=== PATIENT | male | born 1980 | race Hispanic/Latino ===

== ENCOUNTER 2018-06-10 07:23 | Emergency (ER) | payer SELFPAY ==
--- NOTE | 2018-06-10 09:06 | EDPHYS ---
Physician Documentation [facility] Name: Maria Elena Palmer Age: 37 yrs Sex: Male : 1980 Arrival Date: 06/10/2018 Time: 07:27 Bed 14 Private MD: ED Physician Graham Steel HPI: 06/10 07:44 This 37 yrs old Male presents to ER via Ambulatory with complaints of Sore kb Throat, Painful Cough. 07:44 The patient or guardian reports cough, that is intermittent, described as moderate, kb with productive sputum, flu symptoms, low-grade fever, myalgias. Onset: The symptoms/episode began/occurred 7 day(s) ago. Severity of symptoms: At their worst the symptoms were moderate, in the emergency department the symptoms are unchanged. Modifying factors: The symptoms are alleviated by nothing, the symptoms are aggravated by nothing. Associated signs and symptoms: Pertinent positives: chest pain, with cough, fever, rhinorrhea, sore throat, Pertinent negatives: diarrhea, ear ache, nausea, vomiting. The patient has not experienced similar symptoms in the past. The patient has been recently seen by a physician: the patient's primary care provider, 2 day(s) ago, with similar presenting complaints, and apparently given a diagnosis of Bronchitis, was given a prescription for antibiotics. Pt states he started having a sore throat on Tuesday, cough started Tuesday and fever/chills started Tuesday. Went to PCP on and was given azithromycin and an albuterol inhaler for Bronchitis, but it only helped for one day. Woke up this morning with same symptoms as before. Historical: - Allergies: 07:33 No Known Allergies; ss - PMHx: 07:33 None; ss - PSHx: 07:33 unknown throat surgery as a child; ss - Immunization history:: Adult Immunizations up to date. - Social history:: Smoking status: Patient/guardian denies using tobacco. - Ebola Screening: : Patient denies exposure to infectious person Patient denies travel to an Ebola-affected area in the 21 days before illness onset. ROS: 07:42 Neck: Negative for injury, pain, and swelling, Cardiovascular: Negative for chest pain, kb palpitations, and edema, Abdomen/GI: Negative for abdominal pain, nausea, vomiting, diarrhea, and constipation, Back: Negative for injury and pain, MS/Extremity: Negative for injury and deformity, Skin: Negative for injury, rash, and discoloration, Neuro: Negative for headache, weakness, numbness, tingling, and seizure. 07:42 Constitutional: Positive for body aches, chills, fatigue, fever, malaise, Negative for poor PO intake, weight loss. 07:42 ENT: Positive for sore throat. 07:42 Respiratory: Positive for cough, "sounds productive", Negative for dyspnea on exertion, hemoptysis, orthopnea, pleurisy, shortness of breath, wheezing. Exam: 07:44 Constitutional: This is a well developed, well nourished patient who is awake, alert, kb and in no acute distress. Head/Face: Normocephalic, atraumatic. ENT: Nares patent. No nasal discharge, no septal abnormalities noted. Tympanic membranes are normal and external auditory canals are clear. Oropharynx with no redness, swelling, or masses, exudates, or evidence of obstruction, uvula midline. Mucous membranes moist. Neck: Trachea midline, no thyromegaly or masses palpated, and no cervical lymphadenopathy. Supple, full range of motion without nuchal rigidity, or vertebral point tenderness. No Meningismus. Chest/axilla: Normal chest wall appearance and motion. Nontender with no deformity. No lesions are appreciated. Cardiovascular: Regular rate and rhythm with a normal S1 and S2. No gallops, murmurs, or rubs. Normal PMI, no JVD. No pulse deficits. Respiratory: Lungs have equal breath sounds bilaterally, clear to auscultation and percussion. No rales, rhonchi or wheezes noted. No increased work of breathing, no retractions or nasal flaring. Abdomen/GI: Soft, non-tender, with normal bowel sounds. No distension or tympany. No guarding or rebound. No evidence of tenderness throughout. Skin: Warm, dry with normal turgor. Normal color with no rashes, no lesions, and no evidence of cellulitis. MS/ Extremity: Pulses equal, no cyanosis. Neurovascular intact. Full, normal range of motion. Neuro: Awake and alert, GCS 15, oriented to person, place, time, and situation. Cranial nerves II-XII grossly intact. Motor strength 5/5 in all extremities. Sensory grossly intact. Cerebellar exam normal. Normal gait. Vital Signs: 07:33 BP 114 / 70; Pulse 94; Resp 15; Temp 98.1(O); Pulse Ox 98% on R/A; Weight 65.77 kg; ss Height 5 ft. 2 in. (157.48 cm); Pain 0/10; 08:33 BP 117 / 77; Pulse 78; Resp 17; Pulse Ox 100% on R/A; dh3 08:59 BP 102 / 70; Pulse 77; Resp 16; Pulse Ox 100% on R/A; dh3 07:33 Body Mass Index 26.52 (65.77 kg, 157.48 cm) ss MDM: 07:35 Patient medically screened. kb 07:43 Data reviewed: vital signs, nurses notes. Data interpreted: Pulse oximetry: on room air kb is 98 %. Interpretation: normal. Counseling: I had a detailed discussion with the patient and/or guardian regarding: the historical points, exam findings, and any diagnostic results supporting the discharge/admit diagnosis, lab results, radiology results, the need for outpatient follow up, a family practitioner, to return to the emergency department if symptoms worsen or persist or if there are any questions or concerns that arise at home. 06/10 07:34 Order name: Strep; Complete Time: 07:58 kb 06/10 07:34 Order name: Flu; Complete Time: 07:58 kb 06/10 07:34 Order name: Chest Pa And Lat (2 Views) XRAY kb 06/10 07:58 Order name: Throat Culture EDMS Administered Medications: No medications were administered Disposition: 17:19 Co-signature as Attending Physician, Graham Steel MD. Disposition: 06/10/18 09:05 Discharged to Home. Impression: Influenza due to certain identified influenza viruses. - Condition is Stable. - Discharge Instructions: Influenza, Adult, [id number]. - Medication Reconciliation Form, Thank You Letter, Antibiotic Education, Prescription Opioid Use form. - Follow up: Emergency Department; When: As needed; Reason: Worsening of condition. Follow up: Private Physician; When: 2 - 3 days; Reason: Recheck today's complaints, Continuance of care, Re-evaluation by your physician. Signatures: Dispatcher [employer] EDMN Meaghan Avilez, Mahi Anderson RN RN Graham Ponce MD MD gs Corrections: (The following items were deleted from the chart) 09:21 09:05 06/10/2018 09:05 Discharged to Home. Impression: Influenza due to certain ss identified influenza viruses. Condition is Stable. Discharge Instructions: Influenza, Adult, [id number]. Forms are Medication Reconciliation Form, Thank You Letter, Antibiotic Education, Prescription Opioid Use. Follow up: Emergency Department; When: As needed; Reason: Worsening of condition. Follow up: Private Physician; When: 2 - 3 days; Reason: Recheck today's complaints, Continuance of care, Re-evaluation by your physician. kb
--- NOTE | 2018-06-10 09:06 | ER ---
Nurse's Notes [facility] Name: Maria Elena Palmer Age: 37 yrs Sex: Male : 1980 Arrival Date: 06/10/2018 Time: 07:27 Bed 14 Private MD: Diagnosis: Influenza due to certain identified influenza viruses Presentation: 06/10 07:31 Presenting complaint: Patient states: sore throat and cough that began Tuesday, chills ss and fever 3 days ago. Was diagnosed with bronchitis by PCP 2 days ago and given medications that seemed to help for one day, but now cough is painful again. Transition of care: patient was not received from another setting of care. Onset of symptoms was June 04, 2018. Risk Assessment: Do you want to hurt yourself or someone else? Patient reports no desire to harm self or others. Initial Sepsis Screen: Does the patient meet any 2 criteria? No. Patient's initial sepsis screen is negative. Does the patient have a suspected source of infection? Yes: Productive cough/pneumonia. Care prior to arrival: None. 07:31 Method Of Arrival: Ambulatory ss 07:31 Acuity: SOLE 4 ss Historical: - Allergies: 07:33 No Known Allergies; ss - PMHx: 07:33 None; ss - PSHx: 07:33 unknown throat surgery as a child; ss - Immunization history:: Adult Immunizations up to date. - Social history:: Smoking status: Patient/guardian denies using tobacco. - Ebola Screening: : Patient denies exposure to infectious person Patient denies travel to an Ebola-affected area in the 21 days before illness onset. Screenin:00 Abuse screen: Denies threats or abuse. Denies injuries from another. Nutritional ss screening: No deficits noted. Tuberculosis screening: No symptoms or risk factors identified. Never had TB. Fall Risk None identified. Assessment: 08:00 General: Appears in no apparent distress. comfortable, Behavior is calm, cooperative. ss General: Reports chills for >3 days, fever for > 3 days, feeling ill for > 3 days. Pain: Complains of pain in chest Pain does not radiate. Pain currently is 0 out of 10 on a pain scale. at worst was 4 out of 10 on a pain scale. Quality of pain is described as sharp with cough Pain began 2-3 days ago. Is episodic. Neuro: Level of Consciousness is awake, alert, obeys commands, Oriented to person, place, time, situation. Cardiovascular: Capillary refill < 3 seconds is brisk in bilateral fingers Patient's skin is warm and dry. Respiratory: Airway is patent Respiratory effort is even, unlabored, Respiratory pattern is regular, symmetrical, Breath sounds are clear bilaterally. GI: Patient currently denies abdominal pain, diarrhea, nausea, vomiting. : No signs and/or symptoms were reported regarding the genitourinary system. EENT: Nares are clear Oral mucosa is moist. Throat is clear Reports sore throat x 5 days. Derm: Skin is intact, is healthy with good turgor, Skin is dry, Skin is pink, warm \T\ dry. normal. 09:20 Reassessment: Patient appears in no apparent distress at this time. No changes from previously documented assessment. Patient and/or family updated on plan of care and expected duration. Pain level reassessed. Patient is alert, oriented x 3, equal unlabored respirations, skin warm/dry/pink. Vital Signs: 07:33 BP 114 / 70; Pulse 94; Resp 15; Temp 98.1(O); Pulse Ox 98% on R/A; Weight 65.77 kg; Height 5 ft. 2 in. (157.48 cm); Pain 0/10; 08:33 BP 117 / 77; Pulse 78; Resp 17; Pulse Ox 100% on R/A; dh3 08:59 BP 102 / 70; Pulse 77; Resp 16; Pulse Ox 100% on R/A; dh3 07:33 Body Mass Index 26.52 (65.77 kg, 157.48 cm) ED Course: 07:27 Patient arrived in ED. as 07:32 Triage completed. ss 07:33 Arm band placed on left wrist. ss 07:34 Meaghan Avilez FNP-C is PHCP. kb 07:34 Graham Steel MD is Attending Physician. kb 07:41 Flu and/or RSV swab sent to lab. Strep swab sent to lab. 3 08:00 Mahi Beth, BOLA is Primary Nurse. ss 08:00 Patient has correct armband on for positive identification. Bed in low position. Call ss light in reach. Side rails up X 1. Pulse ox on. NIBP on. 08:00 No provider procedures requiring assistance completed. Patient did not have IV access ss during this emergency room visit. Patient maintains SpO2 saturation greater than 95% on room air. 08:12 Chest Pa And Lat (2 Views) XRAY In Process Unspecified. EDMS Administered Medications: No medications were administered Outcome: 09:05 Discharge ordered by . flynn 09:20 Discharged to home ambulatory, with family. ss 09:20 Condition: good 09:20 Discharge instructions given to patient, family, Instructed on discharge instructions, follow up and referral plans. medication usage, Demonstrated understanding of instructions, follow-up care, medications. 09:21 Patient left the ED. ss Signatures: Dispatcher [employer] EDMS Meaghan Avilez, DRIVER EXAMINER-C DRIVER EXAMINER-Marti Munguia Shelby, BOLA RN Nichelle Reddy [facility]
--- NOTE | 2018-06-10 09:43 | RAD REPORT ---
EXAM DESCRIPTION: RAD - Chest Pa And Lat (2 Views) - 06/10/2018 8:13 am CLINICAL HISTORY: Cough and congestion COMPARISON: None. TECHNIQUE: PA and lateral views of the chest were obtained. FINDINGS: The lungs are clear of a peripheral mass or consolidation. No failure or volume overload f inding. Lung markings are mildly prominent but probably baseline for the patient. There is no compari son available. Heart size is normal and central vasculature is within normal limits. No pleural effusion or pneu mothorax seen. No acute bony finding noted. No aortic abnormality. IMPRESSION: No acute cardiopulmonary process. Prominence of the lung markings is probably baseline. Minimal interstitial edema or infiltrate cannot be excluded.
== END 2018-06-10 09:21 | disposition home or self-care (01) ==
LOC: ER 07:23
DX: J10.1 Influenza due to other identified influenza virus with other respiratory manifestations (principal)
CPT/HCPCS: 71046; 87070; 87081; 87804; 99284